=== PATIENT | female | born 1975 | race Caucasian/White ===

== ENCOUNTER → 2016-09-14 | Outpatient (CLI) | payer BC | LOC: LAB 10:32 | DX: B02.9 Zoster without complications (principal) | CPT/HCPCS: 87798 ==

== ENCOUNTER → 2016-12-14 | Outpatient (CLI) | payer BC | LOC: EMI 12:56 | DX: R51 Headache (principal); I67.6 Nonpyogenic thrombosis of intracranial venous system ==

== ENCOUNTER → 2017-03-24 | Outpatient (CLI) | payer BC | LOC: MAMO 13:20 | DX: Z12.31 Encounter for screening mammogram for malignant neoplasm of breast (principal) | CPT/HCPCS: G0202 ==

== ENCOUNTER → 2020-10-23 | Outpatient (CLI) | payer BC | LOC: MAMO 09-24 14:30 | DX: Z12.39 Encounter for other screening for malignant neoplasm of breast (principal) | CPT/HCPCS: 77063; 77067 ==

== ENCOUNTER → 2021-08-14 | Outpatient (CLI) | payer BC | LOC: HEART 5 13:07 | DX: R00.2 Palpitations (principal) ==

== ENCOUNTER → 2021-09-02 | Outpatient (CLI) | payer BC | LOC: HEART 5 12:46 | DX: R00.2 Palpitations (principal); I51.7 Cardiomegaly | CPT/HCPCS: 93306 ==

== ENCOUNTER → 2021-10-29 | Outpatient (CLI) | payer BC | LOC: MAMO 07:43 | DX: Z12.31 Encounter for screening mammogram for malignant neoplasm of breast (principal) | CPT/HCPCS: 77063; 77067 ==

== ENCOUNTER → 2022-03-10 | Outpatient (CLI) | payer BC | LOC: KOH-I 08:09 | DX: G08 Intracranial and intraspinal phlebitis and thrombophlebitis (principal) | CPT/HCPCS: 70544 ==